=== PATIENT | male | born 1975 | race African-American/Black ===

== ENCOUNTER 2022-07-04 17:30 | Outpatient (CLI) | payer BC | END 2022-07-04 17:31 | disposition home or self-care (01) | LOC: SLEEPLAB 17:30 | PROVIDERS: ATTEND Family Medicine | DX: G47.33 Obstructive sleep apnea (adult) (pediatric) (principal); R53.83 Other fatigue; F41.9 Anxiety disorder, unspecified; R06.83 Snoring; I10 Essential (primary) hypertension; G47.00 Insomnia, unspecified | CPT/HCPCS: 95800 ==

== ENCOUNTER 2022-12-03 19:30 | Outpatient (CLI) | payer BC | END 2022-12-03 19:31 | disposition home or self-care (01) | LOC: SLEEPLAB 19:30 | PROVIDERS: ATTEND Family Medicine | DX: G47.33 Obstructive sleep apnea (adult) (pediatric) (principal); R53.83 Other fatigue; R06.83 Snoring; F41.9 Anxiety disorder, unspecified; I10 Essential (primary) hypertension; G47.10 Hypersomnia, unspecified; E66.9 Obesity, unspecified; Z68.37 Body mass index [BMI] 37.0-37.9, adult | CPT/HCPCS: 95811 ==